=== PATIENT | male | born 1945 | race Caucasian/White ===

== ENCOUNTER → 2017-02-05 | Outpatient (CLI) | payer MEDICARE, BC ==
--- NOTE | 2017-02-05 12:21 | CT ---
EXAMINATION TYPE: CT sinus wo con DATE OF EXAM: 02/05/2017 COMPARISON: NONE HISTORY: Chronic sinusitis CT DLP: [address] of the paranasal sinuses was performed in the axial and coronal planes. Bone and soft tissue settings are submitted. The paranasal sinuses demonstrate normal aeration and development. The paranasal sinuses are free of air fluid level. There is minimal mucoperiosteal thickening of the right maxillary sinus. The osteal meatal units are patent bilaterally. The nasal septum is mildly deviated left to right. No bony destructive changes are seen within the field of view. IMPRESSION: 1. Mild right maxillary mucoperiosteal thickening. 2. Mild nasal septal deviation.
--- NOTE | 2017-02-05 12:25 | XR ---
EXAMINATION TYPE: XR chest 2V DATE OF EXAM: 02/05/2017 HISTORY: R05 Cough. REFERENCE: None. FINDINGS: There has been a previous ACDF of the lower cervical spine. Lung volumes are prominent. The lungs are clear. Pleural spaces are clear. The heart is not enlarged. There is hypertrophic spondylosis within the dorsal spine. IMPRESSION: 1. NO ACUTE INTRATHORACIC ABNORMALITY. 2. PLEASE CORRELATE FOR COPD.
== END | disposition home or self-care (01) ==
LOC: RADCTMAIN 11:56
PROVIDERS: ATTEND Otolaryngology
DX: J34.89 Other specified disorders of nose and nasal sinuses (principal); J34.2 Deviated nasal septum; J44.9 Chronic obstructive pulmonary disease, unspecified
CPT/HCPCS: 70486; 71020

== ENCOUNTER → 2018-05-13 | Outpatient (CLI) | payer MEDICARE, BC ==
--- NOTE | 2018-05-13 11:38 | XR ---
EXAMINATION TYPE: XR lumbosacral spine min 4V DATE OF EXAM: 05/13/2018 CLINICAL HISTORY: pain COMPARISON: NONE TECHNIQUE: Frontal, lateral, and oblique images of the lumbar spine are obtained. FINDINGS: There are 5 lumbar type vertebral bodies identified. Mild superior endplate loss of height involving L1 of uncertain age and/or etiology. Moderate degenerative disc space narrowing. Ventral s pondylosis in lower lumbar facet joint arthropathy. The overlying soft tissue appears unremarkable. IMPRESSION: 1.Mild superior endplate loss of height involving L1 of uncertain age and/or etiology. 2. Degenerative changes as discussed
== END | disposition home or self-care (01) ==
LOC: RADXRYALE 09:40
PROVIDERS: ATTEND Physician Assistant Medical
DX: M48.061 Spinal stenosis, lumbar region without neurogenic claudication (principal); M47.816 Spondylosis without myelopathy or radiculopathy, lumbar region; M46.96 Unspecified inflammatory spondylopathy, lumbar region
CPT/HCPCS: 72110

== ENCOUNTER → 2019-01-07 | Outpatient (CLI) | payer MEDICARE, BC ==
--- NOTE | 2019-01-07 12:04 | US ---
EXAMINATION TYPE: US abdomen complete DATE OF EXAM: 01/07/2019 COMPARISON: NONE CLINICAL HISTORY: R10.811 right upper quadrant abdomen tenderness. EXAM MEASUREMENTS: Liver Length: 12.0cm Gallbladder Wall: 0.2m CBD: 0.3m Spleen: 8.7cm Right Kidney: 10.5 x 5.3 x 4.8cm Left Kidney: 10.1 x x 4.8 x 4.9cm Severe overlying midline bowel gas, obscuring portions of liver and entire pancreas Pancreas: Obscured by bowel gas Liver: Possible ill defined hypoechoic area in right lobe with diffuse hepatic echotexture heterogene ity. Gallbladder: wnl Evidence for sonographic Erickson's sign: no CBD: wnl Spleen: wnl Right Kidney: wnl Left Kidney: cyst measuring 1.4 x 1.2 x 1.3cm Upper IVC: wnl Abd Aorta: proximal and bifurcation not seen due to overlying bowel gas The liver is heterogenous The intrahepatic portion of the IVC and proximal abdominal aorta are within normal limits. There is no evidence of cholelithiasis. Common bile duct is unremarkable. The panc reas is obscured. The spleen is unremarkable. Kidneys are symmetric and free of hydronephrosis. No suspicious renal lesions are seen. IMPRESSION: 1. Heterogenous hepatic echotexture with questionable ill-defined right hepatic lobe lesion. Three-ph ase enhanced CT abdomen is recommended for further evaluation. 2. Left renal cyst appears benign and measures 1.4 cm. 3. Obscuration of the pancreas by overlying bowel gas.
== END | disposition home or self-care (01) ==
LOC: RADUSWWP 09:24
PROVIDERS: ATTEND Family Medicine
DX: N28.1 Cyst of kidney, acquired (principal); R14.3 Flatulence
CPT/HCPCS: 76700

== ENCOUNTER → 2019-01-27 | Outpatient (CLI) | payer MEDICARE, BC ==
--- NOTE | 2019-01-27 15:14 | CT ---
EXAMINATION TYPE: CT abdomen wo/w con DATE OF EXAM: 01/27/2019 COMPARISON: Ultrasound 01/07/2019 HISTORY: Abnormal findings, abdominal pain CT DLP: 1024.3 mGycm Automated exposure control for dose reduction was used. TECHNIQUE: Helical acquisition of images was performed from the lung bases through the top of iliac crest to include entire abdomen. CONTRAST: Performed with Oral Contrast and without and with IV Contrast, patient injected with 100 mL of Isovue 300. FINDINGS: LUNG BASES: No significant abnormality is appreciated. LIVER/GB: Within the right hepatic lobe no distinct hepatic lesion is identified. Again noted within the left hepatic lobe are approximately 2 or 3 tiny sub-5 mm cysts. Small focal calcification right h epatic lobe. Mild underlying hepatic steatosis. Gallbladder is unremarkable. PANCREAS: No significant abnormality is seen. SPLEEN: No significant abnormality is seen. ADRENALS: No significant abnormality is seen. KIDNEYS: Simple cyst lower pole left kidney measuring 1.5 cm. No solid renal lesions. No hydronephros is or nephrolithiasis. BOWEL: No significant abnormality is seen. LYMPH NODES: No significant abnormality is seen. OSSEOUS STRUCTURES: No significant abnormality is seen. FREE AIR: No free air is visualized. OTHER: IMPRESSION: 1. 2 or 3 tiny hepatic cysts. Mild hepatic steatosis. Otherwise unremarkable evaluation of the liver.
== END ==
LOC: RADCTMAIN 13:53
PROVIDERS: ATTEND Physician Assistant Medical
DX: K76.0 Fatty (change of) liver, not elsewhere classified (principal); K76.89 Other specified diseases of liver
CPT/HCPCS: 82565; 84520; 74170; 36415; Q9967

== ENCOUNTER → 2020-05-23 | Outpatient (CLI) | payer MEDICARE | END | disposition home or self-care (01) | LOC: LABWHC1 11:16 | PROVIDERS: ATTEND Student in an Organized Health Care Education/Training Program | DX: U07.1 COVID-19 (principal) ==

== ENCOUNTER 2020-05-30 09:50 | Day surgery (SDC) | payer BC, MEDICARE ==
[2020-05-26 14:36] VITALS: BMI 25.1
[~2020-05-30 09:50] MED LIST: HEPARIN SODIUM,PORCINE 5,000 UNIT/ML 1 ML VIAL SQ ONE; HYDROmorphone 0.5 MG/0.5 ML SYRINGE IVP PRN; LACTATED RINGERS 1,000 ML IV SCH; ONDANSETRON 4 MG/2 ML VIAL IVP ONE; fentaNYL (PF) 50 MCG/ML 2 ML AMP IV PRN
[2020-05-30] MEDS ORDERED: ONDANSETRON 4 MG/2 ML VIAL ONE (10:26)
[2020-05-30] MEDS ORDERED: LIDOCAINE 1% (10MG/ML) FOR IV START INTRADERMA ONE (10:42)
[2020-05-30] MEDS ORDERED: DEXAMETHASONE SOD PHOSPHATE 4 MG/ML 1 ML VIAL IVP ONE (10:42)
[2020-05-30] MEDS ORDERED: MIDAZOLAM 2 MG/2 ML VIAL IVP ONE (11:00)
--- NOTE | 2020-05-30 11:20 | P.ANPRN ---
Procedure Note - Anesthesia - Nerve Block Performed Bilateral Transversus Abdominis Single Time Out Performed: Yes Date of Procedure: 05/30/20 Procedure Start Time: 11:59 Procedure Stop Time: 12:06 Location of Patient: PreOp Indication: Acute Post-Operative Pain, Requested by Surgeon Sedation Type: Sedate with meaningful contact maintained Preparation: Sterile Prep Position: Supine Needle Types: Pajunk Needle Gauge: 21 Ultrasound used to visualize needle placement: Yes Ultrasound used to observe medication spread: Yes Blood Aspirated: No Pain Paresthesia on Injection Noted: No Resistance on Injection: Normal Image Stored and Saved: Yes Events: Uneventful and Well Tolerated (ropi .5% 20cc plus dexamethasone 4mg bilaterally)
[2020-05-30] MEDS ORDERED: ROPIVACAINE 5 MG/ML 30 ML VIAL ONE (11:26)
[2020-05-30] MEDS ORDERED: PROPOFOL 10 MG/ML 20 ML VIAL IV ONE (11:26)
[2020-05-30] MEDS ORDERED: fentaNYL (PF) 50 MCG/ML 2 ML AMP ONE (11:26)
[2020-05-30] MEDS ORDERED: ePHEDrine SULFATE/0.9% NACL/PF 50 MG/5 ML SYRINGE IV ONE (11:26)
[2020-05-30] MEDS ORDERED: DEXAMETHASONE SOD PHOSPHATE 10 MG/ML 1 ML VIAL ONE (11:26)
[2020-05-30] MEDS ORDERED: LIDOCAINE 0.5%-EPI 1:200,000 50 ML VIAL SQ ONE (12:02)
[2020-05-30] MEDS ORDERED: LACTATED RINGERS 1,000 ML IV ONE (12:37)
--- NOTE | 2020-05-30 12:44 | P.OP ---
Date of Procedure: 05/30/20 Preoperative Diagnosis: left inguinal hernia Postoperative Diagnosis: Same Procedure(s) Performed: Robotic-assisted left inguinal hernia repair Anesthesia: FÉLIX Surgeon: Saleem Ye Estimated Blood Loss (ml): 5 Condition: stable Disposition: PACU Description of Procedure: Patient is brought operative suite remained in the supine position underwent general endotracheal anesthesia per Department of anesthesia he was prepped and draped the usual sterile fashion timeout was performed correct patient correct procedure correct site was verified. A 2 similar incision was made just. The umbilicus carried down the fascia which was incised in the abdomen was entered under direct visualization an 8 mm port was placed abdomen was insufflated no injuries were noted to separate 8 mm ports were placed on the lateral sides of this in the mid abdomen patient was placed in Trendelenburg and the defect was visualized noted only on the left. The peritoneum was dissected free down to the pubis medially and laterally and posteriorly up to the psoas the hernia defect was reduced and a mesh was placed pro ec teacher mesh. The peritoneum was then reapproximated using a 3-0V lock suture. The abdomen was inspected no injuries were noted the needle was removed and the midline fascia was closed with an 0 Vicryl with the aid of a Erik-Betty suture passer. The ports removed and the abdomen was desufflated the skin was closed with 4-0 Monocryl subcuticular stitches and skin glue. Patient tolerated the procedure well no apparent complications Plan - Discharge Summary Discharge Rx Participant: No New Discharge Prescriptions: No Action Aspirin 81 mg PO DAILY Fish Oil/Dha/Epa [Fish Oil 1,200 mg Fish Oil] 2,400 mg PO DAILY Calcium Carb-Mag Carb-Folic [Magnebind 400] 1 tab PO DAILY Pravastatin Sodium [Pravachol] 20 mg PO DAILY Lisinopril [Prinivil] 10 mg PO DAILY Kjanoq-Vhsd-Ugnbdl Flex 1 tab PO DAILY Discharge Medication List Aspirin 81 mg PO DAILY 08/31/14 [History] Calcium Carb-Mag Carb-Folic [Magnebind 400] 1 tab PO DAILY 10/06/14 [History] Fish Oil/Dha/Epa [Fish Oil 1,200 mg Fish Oil] 2,400 mg PO DAILY 10/06/14 [History] Lisinopril [Prinivil] 10 mg PO DAILY 05/26/20 [History] Painsg-Ffuw-Zhaenb Flex 1 tab PO DAILY 05/26/20 [History] Pravastatin Sodium [Pravachol] 20 mg PO DAILY 05/26/20 [History]
[2020-05-30 12:53] VITALS: TEMP 96.9
[2020-05-30] MEDS ORDERED: HYDROmorphone 0.5 MG/0.5 ML SYRINGE IVP ONE (13:15)
[2020-05-30 14:17] VITALS: RESP 20
[2020-05-30 15:04] VITALS: BP 118/62
[2020-05-30 15:08] VITALS: PULSE 78
== END 2020-05-30 15:42 | disposition home or self-care (01) ==
LOC: OR 09:50
PROVIDERS: ATTEND Student in an Organized Health Care Education/Training Program
DX: K40.90 Unilateral inguinal hernia, without obstruction or gangrene, not specified as recurrent (principal); I10 Essential (primary) hypertension; E78.00 Pure hypercholesterolemia, unspecified; M19.90 Unspecified osteoarthritis, unspecified site; K64.9 Unspecified hemorrhoids; Z98.1 Arthrodesis status; Z98.890 Other specified postprocedural states; Z82.49 Family history of ischemic heart disease and other diseases of the circulatory system; Z79.899 Other long term (current) drug therapy; E78.5 Hyperlipidemia, unspecified; N40.0 Benign prostatic hyperplasia without lower urinary tract symptoms; Z88.1 Allergy status to other antibiotic agents
CPT/HCPCS: 64488; 49650; C1781; J2250; J1644; J1100 ×2; J0690; J2405; J3010; J2795; J2704; J1170

== ENCOUNTER → 2021-02-14 | Outpatient (CLI) | payer MEDICARE, BC ==
--- NOTE | 2021-02-14 11:44 | XR ---
EXAMINATION TYPE: XR shoulder complete RT DATE OF EXAM: 02/14/2021 COMPARISON: NONE HISTORY: Pain TECHNIQUE: Shoulder examined in 3 views FINDINGS: The humeral head articulates with the glenoid. The acromio-clavicular junction is normal. No acute fractures or dislocations are evident. A follow up study can be performed 7-10 days from acute trauma for continued pain. IMPRESSION: 1. Normal three-view right Shoulder
== END | disposition home or self-care (01) ==
LOC: RADXRYALE 10:55
PROVIDERS: ATTEND Physician Assistant Medical
DX: M25.511 Pain in right shoulder (principal)

== ENCOUNTER → 2021-06-11 | Outpatient (CLI) | payer MEDICARE, BC ==
--- NOTE | 2021-06-11 15:43 | XR ---
EXAMINATION TYPE: XR lumbosacral spine min 4V DATE OF EXAM: 06/11/2021 CLINICAL HISTORY: pain COMPARISON: NONE TECHNIQUE: Frontal, lateral, and oblique images of the lumbar spine are obtained. FINDINGS: There are 5 lumbar type vertebral bodies identified. The lumbar spine shows satisfactory alignment without evidence of acute fracture or dislocation. Vertebral body heights are within normal limits. Moderate multilevel degenerative disc space narrowing and spondylosis. The overlying soft tissue appears unremarkable. IMPRESSION: No acute fracture or dislocation is seen in the lumbar spine.ICD 10 NO FRACTURE, INITIAL EVALUATION
== END | disposition home or self-care (01) ==
LOC: RADXRYALE 14:56
PROVIDERS: ATTEND Physician Assistant Medical
DX: M51.36 Other intervertebral disc degeneration, lumbar region (principal); M47.816 Spondylosis without myelopathy or radiculopathy, lumbar region
CPT/HCPCS: 72110

== ENCOUNTER → 2021-08-10 | Outpatient (CLI) | payer MEDICARE ==
--- NOTE | 2021-08-10 11:29 | XR ---
EXAMINATION TYPE: XR orbit detect foreign body DATE OF EXAM: 08/10/2021 COMPARISON: None HISTORY: Screening for primary orbits history of working with metal TECHNIQUE: Orbits are examined in 3 projections. FINDINGS: No radiopaque foreign bodies are identified in or about the orbits to contraindicate MRI. Osseous structures appear intact. Silhouette is unremarkable. Paranasal sinuses are clear. IMPRESSION: 1. No radiopaque foreign bodies in or about the orbits to contraindicate MRI.
--- NOTE | 2021-08-10 16:07 | MR ---
EXAMINATION TYPE: MR lumbar spine wo con DATE OF EXAM: 08/10/2021 COMPARISON: None HISTORY: lumbago with sciatica CONTRAST: 0 mL intravenous Gadavist. TECHNIQUE: Multiplanar, multisequence images of the lumbar spine were acquired. FINDINGS: L5-S1: Broad-based disc bulge with mild anterior thecal sac flattening. No spinal canal stenosis is p resent. Marked facet hypertrophy is present with posterior lateral thecal sac compression secondary t o ligamentum flavum laxity. L4-L5: There is a central broad-based disc herniation with moderate anterior thecal sac compression. The small amount of subligamentous disc extension has mild anterior thecal sac compression posterior to the L5 level. Facet hypertrophy and ligamentum flavum laxity of posterior lateral thecal sac compr ession. Mild canal narrowing may be present. AP spinal canal stenosis is not evident. L3-L4: No significant disc bulge or disc herniation. No spinal canal stenosis. No foraminal stenosi s. L2-L3: No significant disc bulge or disc herniation. No spinal canal stenosis. No foraminal stenosi s. Mild ligamentum flavum laxity however is noted. L1-L2: No significant disc bulge or disc herniation. No spinal canal stenosis. No foraminal stenosi s. T12-L1: No significant disc bulge or disc herniation. No spinal canal stenosis. No foraminal stenos is. IMPRESSION: 1. Mild spinal canal narrowing due to central disc herniation based disc bulge and facet hypertrophy and ligamentum flavum laxity L4-5 is present. 2. Broad-based disc bulge L5-S1 with mild anterior thecal sac compression. Facet hypertrophy with lig amentum flavum laxity is present.
== END | disposition home or self-care (01) ==
LOC: RADMRIMAIN 10:32
PROVIDERS: ATTEND Physician Assistant Medical
DX: M51.17 Intervertebral disc disorders with radiculopathy, lumbosacral region (principal); M47.27 Other spondylosis with radiculopathy, lumbosacral region; M48.061 Spinal stenosis, lumbar region without neurogenic claudication
CPT/HCPCS: 70030; 72148

== ENCOUNTER 2022-12-20 11:00 | Day surgery (SDC) | payer MEDICARE, BC ==
[2022-12-18 10:19] VITALS: BMI 25.8
[~2022-12-20 11:00] MED LIST changes: -HEPARIN SODIUM,PORCINE 5,000 UNIT/ML 1 ML VIAL SQ ONE; -HYDROmorphone 0.5 MG/0.5 ML SYRINGE IVP PRN; +LIDOCAINE 1% (10MG/ML) FOR IV START INTRADERMA PRN; -ONDANSETRON 4 MG/2 ML VIAL IVP ONE; -fentaNYL (PF) 50 MCG/ML 2 ML AMP IV PRN
[2022-12-20 11:30] VITALS: RESP 16; TEMP 97.3
[2022-12-20] MEDS ORDERED: PROPOFOL 10 MG/ML 20 ML VIAL IV ONE (12:20)
[2022-12-20] MEDS ORDERED: LIDOCAINE 2% INJ 20 MG/ML (2 ML VIAL) ONE (12:20)
--- NOTE | 2022-12-20 12:29 | P.PCN ---
Date of Procedure: 12/20/22 Procedure(s) Performed: BRIEF HISTORY: Patient is a 77-year-old, pleasant, white male scheduled for an upper endoscopy as a part of evaluation of chronic heartburn and intermittent dysphagia to solids. PROCEDURE PERFORMED: Esophagogastroduodenoscopy biopsy . PREOPERATIVE DIAGNOSIS: Chronic heartburn intermittent dysphagia to solids. IV sedation per anesthesia. PROCEDURE: After informed consent was obtained, the patient was brought into the endoscopy unit. IV sedation was administered by Anesthesia under continuous monitoring. Initially the Olympus GIF-140 video endoscope was inserted into the mouth. Esophagus intubated without any difficulty. It was gradually advanced into the stomach and duodenum and carefully examined. The bulb and the second part of the duodenum appeared normal. The scope at this time was withdrawn to the stomach, adequately insufflated with air, and upon careful examination, mucosa of the antrum, had scattered erosions and biopsies were done from this area. Mucosa of the body, cardia and the fundus appeared normal. The scope was then withdrawn into the esophagus. The GE junction was located at 41 cm from the incisors. There were linear erosions in the distal esophagus consistent with LA grade B reflux esophagitis. Rest of esophagus appeared normal. No evidence of esophageal stricture. Biopsies were done from the distal esophagus and the patient tolerated the procedure well. IMPRESSION: 1. 2 superficial erosions at the GE junction consistent with LA grade B reflux esophagitis. 2. No evidence of esophageal stricture 3. Antral erosive gastritis. RECOMMENDATIONS: The findings of this examination were discussed with the patient as well as his family. He was advised to follow with the biopsy results. His symptoms are suggestive of gastroesophageal reflux and hence he will be started on omeprazole 20 mg daily and was briefly treated antireflux measures.
[2022-12-20 12:49] VITALS: BP 116/57; PULSE 84
== END 2022-12-20 13:18 | disposition home or self-care (01) ==
LOC: ORWHC2ENDO 11:00
PROVIDERS: ATTEND Internal Medicine Gastroenterology
DX: K29.60 Other gastritis without bleeding (principal); K31.9 Disease of stomach and duodenum, unspecified; K21.9 Gastro-esophageal reflux disease without esophagitis; I10 Essential (primary) hypertension; E78.5 Hyperlipidemia, unspecified; I99.9 Unspecified disorder of circulatory system; Z79.899 Other long term (current) drug therapy
CPT/HCPCS: 88305; 43239; J2704; J2001; 43236

== ENCOUNTER → 2024-02-04 | Outpatient (CLI) | payer MEDICARE, BC ==
--- NOTE | 2024-02-04 09:21 | US ---
EXAMINATION TYPE: US kidneys/renal and bladder DATE OF EXAM: 02/04/2024 COMPARISON: US 01/07/[address] abdomen 01/27/2019 CLINICAL INDICATION: Male, 79 years old with history of R10.9 FLANK PAIN, RIGHT SIDE; Pt states right flank pain x many years and recent abnormal labs EXAM MEASUREMENTS: Right Kidney: 10.8 x 5.2 x 4.9 cm Left Kidney: 10.3 x 4.5 x 4.5 cm Right Kidney: No hydronephrosis or masses seen Left Kidney: No hydronephrosis/ cystic lesion lower pole= 2.1 x 2.0 x 2.1 cm Bladder: wnl Bilateral Jets seen: No There is no evidence for hydronephrosis at this point in time. No nephrolithiasis is seen. Cortical medullary differentiation is maintained bilaterally. No solid masses are identified. Exophytic left lower pole renal simple cyst measuring up to 2.1 cm. The urinary bladder is anechoic. Bilateral uret eral jets are not seen. IMPRESSION: 1. No hydronephrosis or nephrolithiasis. 2. Left renal simple cyst.
== END | disposition home or self-care (01) ==
LOC: RADUSWWP 06:58
PROVIDERS: ATTEND Urology
DX: N28.1 Cyst of kidney, acquired (principal)
CPT/HCPCS: 76770